=== PATIENT | female | born 1965 | race Caucasian/White ===

== ENCOUNTER 2021-10-23 05:21 | Inpatient (IN) | payer MEDICARE ==
[2021-10-15 15:35] LABS: BASOPHILS % (AUTO) 0.3 % (0-1); EOSINOPHILS # (AUTO) 0.2 X10'3 (0-0.9); EOSINOPHILS % (AUTO) 3.3 % (0-6); LYMPHOCYTES # (AUTO) 2.3 X10'3 (1.1-4.8); LYMPHOCYTES % (AUTO) 33.7 % (21-51); MEAN CORPUSCULAR HEMOGLOBIN 33.1 PG (27.0-31.0); MEAN CORPUSCULAR HGB CONC 34.3 g/dL (33.0-36.5); MEAN CORPUSCULAR VOLUME 96.3 FL (78-98); MEAN PLATELET VOLUME 7.2 FL (7.4-10.4); MONOCYTES # (AUTO) 0.6 X10'3 (0-0.9); MONOCYTES % (AUTO) 9.4 % (2-12); NEUTROPHILS # (AUTO) 3.6 X10'3 (1.8-7.7); NEUTROPHILS % (AUTO) 53.3 % (42-75); PRE OP HEMATOCRIT 41.4 % (35.0-45.0); PRE OP HEMOGLOBIN 14.2 g/dL (12.0-16.0); PRE OP PLATELET COUNT 282 X10'3 (140-440); RED BLOOD COUNT 4.29 X10'6 (4.20-5.60); RED CELL DISTRIBUTION WIDTH 14.6 % (11.5-14.5)
[2021-10-15 15:42] LABS: CLARITY,URINE CLEAR (Clear); GLUCOSE, URINE NEGATIVE (Neg); KETONES,URINE NEGATIVE (Neg); LEUKOCYTE ESTERASE ,URINE NEGATIVE (Neg); NITRITES, URINE NEGATIVE (Neg); OCCULT BLOOD,URINE NEGATIVE (Neg); PH,URINE 6.5 (4.8-8.0); PROTEIN,URINE NEGATIVE (Neg); UROBILINOGEN,URINE 0.2 E.U/dL (0.2-1.0)
[2021-10-15 15:47] LABS: ALBUMIN 3.6 G/DL (3.4-5.0); ALBUMIN/GLOBULIN RATIO 1.1 (1.1-1.5); ALKALINE PHOSPHATASE 99 IU/L (46-116); BLOOD UREA NITROGEN 13 MG/DL (7-18); BUN/CREATININE RATIO 15.9 (6.6-38.0); CALCIUM 8.2 MG/DL (8.5-10.1); CHLORIDE 108 MMOL/L (99-107); CREATININE 0.82 MG/DL (0.40-0.90); PRE OP ALT 28 U/L (30-65); PRE OP ANION GAP 7 (8-16); PRE OP AST 20 U/L (10-37); PRE OP BILIRUB, TOTAL 0.1 MG/DL (0.0-1.0); PRE OP GLUCOSE 94 MG/DL (70-104); PRE OP POTASSIUM 3.8 MMOL/L (3.4-5.1); PRE OP SODIUM 142 MMOL/L (135-145); TOTAL PROTEIN 6.9 G/DL (6.4-8.2); eGFR 72 ML/MIN
[2021-10-15 15:57] LABS: COLOR,URINE STRAW (Yellow); UA COLLECTION TYPE CLN CATCH MIDSTREAM
[2021-10-23] VITALS (18 sets, daily range): BP systolic 109–162; BP diastolic 69–86
[~2021-10-23] VITALS: Ht 167.6 cm; Wt 68.8 kg
[~2021-10-23 05:21] MED LIST: ACYC-129 PO; B12; B6; BUPROPRION; CALC-212; COL250C PO; CYCL-394 PO; DICL50TA8 PO; DULO-31 PO; FERR325T28 PO; GABA-530 PO; THEO300T10 PO; TOP100T PO
[2021-10-23] MEDS ORDERED: cefazolin/dext.iso 2gm/50ml IV ONE (05:30)
[2021-10-23] MEDS ORDERED: famotidine 20mg tablet PO ONE (05:30)
[2021-10-23] MEDS ORDERED: vancomycin/NS 1 GM in NS 250 ML IV ONE (05:30)
[2021-10-23] MEDS ORDERED: LIDOcaine 1% (10mg/ml) 2ml vial ONE (06:18)
[2021-10-23] MEDS: ringers solution, lacted 1,000 ML IV SCH ×2 (06:26→13:28)
[2021-10-23] MEDS ORDERED: midazolam 1 mg/ML 2ml injection ONE (07:13)
[2021-10-23] MEDS ORDERED: fentaNYL/PF 50MCG/1 ML 2ML syringe ONE ×2 (07:13→08:14)
[2021-10-23] MEDS ORDERED: cloNIDine hcl/PF 100mcg/ml inj ONE (07:15)
[2021-10-23] MEDS ORDERED: morphine 2 MG/ML inj. syringe IV PRN (08:45)
[2021-10-23] MEDS ORDERED: ROPIVAcaine 0.2% (10 MG/5 ML) BOLUS INJECTION POPLITEAL PRN (08:45)
[2021-10-23] MEDS ORDERED: ROPIVAcaine 0.2%/PF PUMP/bolus 545 ML POPLITEAL SCH (08:45)
[2021-10-23] MEDS ORDERED: ringers solution, lacted 1,000 ML IV SCH (08:45)
[2021-10-23] MEDS ORDERED: morphine 4 MG/ML inj SYRINge IV PRN (08:45)
[2021-10-23] MEDS ORDERED: meperidine/PF 25mg/ml syringe IV PRN ×3 (08:45)
[2021-10-23] MEDS ORDERED: ondansetron/PF 4mg/2ml inj IV PRN ×2 (08:45→10:10)
[2021-10-23] MEDS ORDERED: proCHLORperazine 10 MG/2 ml inj IV PRN (08:45)
[2021-10-23] MEDS ORDERED: propofol inj 20 ML IV ONE (08:54)
[2021-10-23] MEDS ORDERED: ondansetron/PF 4mg/2ml inj ONE (08:54)
[2021-10-23] MEDS ORDERED: acetaminophen 1,000mg/100ml IV 100 ML IV ONE (08:54)
[2021-10-23] MEDS ORDERED: ROPIVAcaine 0.5% (5mg/ml) 30ml vial ONE (08:54)
[2021-10-23] MEDS ORDERED: neostigmine methylsulfate 1 MG/ML 10ml vial ONE (08:54)
[2021-10-23] MEDS ORDERED: rocuronium 10mg/ml inj IV ONE (08:54)
[2021-10-23] MEDS ORDERED: dexamethasone sod phosphate 4mg/ml inj. ONE (08:54)
[2021-10-23] MEDS ORDERED: glycopyrrolate 0.2mg/ml inj ONE (08:54)
[2021-10-23] MEDS ORDERED: bacitracin 15gm ointment TP ONE ×2 (09:13→09:34)
--- NOTE | 2021-10-23 10:09 | NUR ---
Received from OR via ORTHO BED WITH [facility] , accompanied by Anesthesiologist ELIAN and report given by Anesthesiolgist. PATIENT WITH LEFT LE SPLINT THAT IS CDI. TOES PWD WITH + CAP REFILL TO ALL. PATIENT WITH FOB GATCHED AND CAST ELEVATOR PLACED UPON ARRIVAL . NERVE BLOCK CATH TO LEFT LE AND WILL CONNECT ONQ WHEN ARRIVES. 20G PIV IN RIGHT HAND RUNNING LR AT 100. 10L MASK ON WITH 98% SATURATIONS. APPEARS TO NOT BE EXPERIENCOING PAIN AT THIS TIME. WILL CONTINUE TO ASSESS PATIENT IS NOT OVERLY VERBAL AT THIS TIME. Addendum: 10/23/21 at 1026 by Danish Kline RN RN Amended: Links added.
[2021-10-23] MEDS ORDERED: mag hydrox/Alum hydrox/simeth 30ml oral suspension PO PRN (10:10)
[2021-10-23] MEDS ORDERED: magnesium hydroxide 30ml (MOM) UD suspension PO PRN (10:10)
[2021-10-23] MEDS ORDERED: acetaminophen 325mg tablet PO PRN (10:10)
--- NOTE | 2021-10-23 11:02 | NUR ---
Received report from TIERA Peng. Awaiting patient arrival.
--- NOTE | 2021-10-23 11:09 | NUR ---
PATIENT HAS MET ALL CRITERIA FOR TRANSFER TO THE ORTHO FLOOR. VSS. DRESSINGS INTACT. BED LOW, CALL LIGHT PRESENT AND 2 RAILS UP. RN PRESENT TO ACCEPT CARE OF PATIENT AND REPORT HAS BEEN CALLED. ALL QUESTIONS ANSWERED TO ACCEPTING TIERA ECHAVARRIA. ONE BAG OF BELONGINGS SENT WITH PATIENT TO THE FLOOR. ON Q DELIVERED TO THE 4TH FLOOR WELL. PATIENT VSS AND DENIES PAIN. TEMP IMPROVED WITH ASSIST OF [employer] BLANKETS AND WARMERS. Addendum: 10/23/21 at 1126 by Danish Peter - TIERA MOTT Amended: Links added.
--- NOTE | 2021-10-23 11:26 | NUR ---
Patient arrived to the floor. VSS. no complaints of pain.
--- NOTE | 2021-10-23 18:34 | NUR ---
Problems reprioritized. Patient report given, questions answered & plan of care reviewed with TIERA Dunbar.
[2021-10-23] MEDS: docusate sod 100mg capsule PO SCH (19:23)
[2021-10-23] MEDS: HYDROcodone/acetaminophen 10/325mg tab PO PRN (19:23)
[2021-10-24] MEDS: HYDROcodone/acetaminophen 10/325mg tab PO PRN ×2 (01:20→08:11)
[2021-10-24] MEDS: ALBUTEROL INHALER 1 PUFF/90 MCG INHALER IH PRN ×2 (03:20→08:04)
[2021-10-24 06:00] VITALS: BP 121/78
--- NOTE | 2021-10-24 06:43 | NUR ---
Patient in room ORTHO 4015. I have received report from TIERA Dunbar and had the opportunity to ask questions and assume patient care.
[2021-10-24] MEDS ORDERED: BUPR2TAB11 SL (07:03)
[2021-10-24] MEDS ORDERED: CYAN-51 PO (07:06)
[2021-10-24] MEDS ORDERED: CALC-1215 PO (07:06)
[2021-10-24] MEDS ORDERED: THIA100T66 PO (07:06)
[2021-10-24] MEDS ORDERED: topiramate 100mg tablet PO SCH (08:00)
[2021-10-24] MEDS ORDERED: THEOPHYLLINE ANHYDROUS 300 MG PO SCH (08:00)
[2021-10-24] MEDS ORDERED: THEOPHYLLINE ANHYDROUS PO SCH (08:00)
[2021-10-24] MEDS ORDERED: non-formulary drug (Diclofenac Sodium 1 TAB) PO SCH (08:00)
[2021-10-24] MEDS ORDERED: non-formulary drug (Calcium Carbonate/Vitamin D3 (Calcium + D 600 Mg Tablet) 1 EACH) PO SCH (08:00)
[2021-10-24] MEDS ORDERED: duloxetine 30mg CAPSULE.DR PO SCH (08:00)
[2021-10-24] MEDS ORDERED: cyanocobalamin 500mcg tablet PO SCH (08:00)
[2021-10-24] MEDS ORDERED: calcium carbonate/vitamin D3 tablet PO SCH (08:00)
[2021-10-24] MEDS ORDERED: cyclobenzaprine 10mg tablet PO SCH (08:00)
[2021-10-24] MEDS ORDERED: gabapentin 100mg capsule PO SCH (08:00)
[2021-10-24] MEDS ORDERED: acyclovir 200 MG capsule PO SCH (08:00)
[2021-10-24] MEDS ORDERED: thiamine 100mg tablet PO SCH (08:00)
[2021-10-24] MEDS ORDERED: ferrous sulfate 325mg tablet PO SCH (08:00)
[2021-10-24] MEDS: docusate sod 100mg capsule PO SCH (08:11)
[2021-10-24 10:00] VITALS: BP 134/71
--- NOTE | 2021-10-24 12:15 | NUR ---
Pt discharged to home, with all belongings, in private vehicle, accompanied by . Discharge instructions and medications reviewed. New prescriptions filled by pt [facility] SUPERINTENDENT. Pt instructed to follow up with Dr Moore as scheduled, and to contact his office with any concerns. Pt instructed to maintain non-weight bearing status to left leg, and states she has a knee scooter and FWW at home. Pt and state understanding and willingness to comply with all discharge instructions. IV DC'd, cannula intact. Pt escorted to front lobby via wheelchair by PCT.
[2021-10-24] MEDS ORDERED: docusate sod 250mg capsule PO SCH (21:00)
== END 2021-10-24 12:15 | disposition home or self-care (01) | DRG 494 ==
LOC: PAS IN 05:21 → ORTHO 4S 11:10
PROVIDERS: ADMIT Podiatrist Foot & Ankle Surgery; ATTEND Podiatrist Foot & Ankle Surgery
PROC: 0QBH0ZZ Excision of Left Tibia, Open Approach (ICD-10-PCS; 2021-10-23)
PROC: 0SGJ0KZ Fusion of Left Tarsal Joint with Nonautologous Tissue Substitute, Open Approach (ICD-10-PCS; 2021-10-23)
PROC: 0SGJ0KZ Fusion of Left Tarsal Joint with Nonautologous Tissue Substitute, Open Approach (ICD-10-PCS; 2021-10-23)
PROC: 0SGJ04Z Fusion of Left Tarsal Joint with Internal Fixation Device, Open Approach (ICD-10-PCS; 2021-10-23)
PROC: 0SGJ04Z Fusion of Left Tarsal Joint with Internal Fixation Device, Open Approach (ICD-10-PCS; 2021-10-23)
PROC: 0SGJ04Z Fusion of Left Tarsal Joint with Internal Fixation Device, Open Approach (ICD-10-PCS; 2021-10-23)
PROC: 0L8P0ZZ Division of Left Lower Leg Tendon, Open Approach (ICD-10-PCS; 2021-10-23)
PROC: 3E0T3BZ Introduction of Anesthetic Agent into Peripheral Nerves and Plexi, Percutaneous Approach (ICD-10-PCS; 2021-10-23)
PROC: 0SGJ0KZ Fusion of Left Tarsal Joint with Nonautologous Tissue Substitute, Open Approach (ICD-10-PCS; principal; 2021-10-23 07:25)
DX: M19.072 Primary osteoarthritis, left ankle and foot (principal); Q66.6 Other congenital valgus deformities of feet
CPT/HCPCS: 36415; 73630; 76000; 80053; 81003; 82948; 85025; 94640; 94760; 97116; 97161; 97530; A4618; A6223; A6253; A6449; A7000; C1713; C1762; C1769; G0378; J0131; J0690; J0735; J1100; J2250; J2405; J2704; J2710; J2795; J3010; J3370; J3490; J7120; U0003; U0005